=== PATIENT | female | born 1950 | race Two or more races ===

== ENCOUNTER 2021-11-24 07:15 | Emergency (ER) | payer MEDICAID ==
[~2021-11-24] VITALS: Ht 157.5 cm; Wt 69.4 kg
--- NOTE | 2021-11-24 07:30 | NUR ---
RECEIVED PT 71 yrs female walking in from home c/o abdominale pain started yesterday goting worse today voding cloudy urine color 25mg
--- NOTE | 2021-11-24 07:54 | NUR ---
EKG DONE UA SENT TO LAB
[2021-11-24] MEDS ORDERED: IV NS 0.9% 1,000 ML BAG IV ONE ×2 (08:00→08:30)
[2021-11-24] MEDS ORDERED: MORPHINE SULFATE INJ 2 MG/ML DISP.SYRIN IV ONE (08:00)
[2021-11-24] MEDS ORDERED: ONDANSETRON HCL/PF 4 MG/2 ML VIAL IVP ONE (08:00)
[2021-11-24] MEDS ORDERED: ACETAMINOPHEN ES 500 MG TABLET PO ONE (08:00)
[2021-11-24] MEDS ORDERED: ACETAMINOPHEN ES 500 MG TABLET ONE (08:16)
[2021-11-24] MEDS ORDERED: MORPHINE SULFATE INJ 4 MG/ML DISP.SYRIN ONE (08:16)
[2021-11-24] MEDS ORDERED: ONDANSETRON HCL/PF 4 MG/2 ML VIAL ONE (08:16)
--- NOTE | 2021-11-24 08:20 | NUR ---
BLOOD DROW AND SENT TO LAB
[2021-11-24 08:43] LABS: ALBUMIN 3.2 g/dL (3.4-5.0); BILIRUBIN,DIRECT 0.4 mg/dL (0.0-0.2); BILIRUBIN,TOTAL 1.2 mg/dL (0.2-1.0); CALCIUM, SERUM 8.6 mg/dL (8.5-10.1); CREATININE 1.3 mg/dL (0.6-1.3); POTASSIUM 3.5 mmol/L (3.5-5.1); TOTAL PROTEIN, SERUM 7.4 g/dL (6.4-8.2)
--- NOTE | 2021-11-24 08:45 | NUR ---
TO CT SCAN OF ABDOMIN VIA MICHELLE
[2021-11-24 08:51] LABS: BILIRUBIN,URINE NEGATIVE (NEGATIVE); COLOR,URINE YELLOW (YELLOW); LEUKOCYTE ESTERASE ,URINE LARGE (NEGATIVE); NITRITE, URINE POSITIVE (NEGATIVE); PROTEIN,URINE 100 mg/dl (NEGATIVE); UGLUCOSE NEGATIVE (NEGATIVE); UROBILINOGEN,URINE 0.2 EU/dL (0.2)
[2021-11-24 09:04] LABS: BASOPHILS % (AUTO) 0.1 % (0.0-2.0); HEMATOCRIT 39 % (33-45); HEMOGLOBIN 13.2 g/dL (11.5-14.8); LYMPHOCYTES # (AUTO) 0.8 K/uL (0.8-4.8); LYMPHOCYTES % (AUTO) 5.6 % (20.0-44.0); MEAN CORPUSCULAR HGB CONC 34 g/dl (31.0-36.0); MEAN CORPUSCULAR VOLUME 90 fL (82-100); MONOCYTES # (AUTO) 1.3 K/uL (0.1-1.30); MONOCYTES % (AUTO) 9.6 % (2.0-12.0); NEUTROPHILS # (AUTO) 11.4 K/uL (1.8-8.9); NEUTROPHILS % (AUTO) 84.7 % (43.0-81.0); PLATELET COUNT (AUTO) 170 K/uL (150-450); RED BLOOD CELL COUNT(AUTO) 4.31 MIL/uL (4.0-5.2); WHITE BLOOD COUNT (AUTO) 13.4 K/uL (4.3-11.0)
[2021-11-24] MEDS ORDERED: CEPH500C2 PO (09:27)
[2021-11-24] MEDS ORDERED: ONDA4TAB5 PO (09:27)
[2021-11-24] MEDS ORDERED: IBUP-1955 PO (09:27)
[2021-11-24] MEDS ORDERED: CEFTRIAXONE 1 G in IV D5W 50 ML IV ONE (09:30)
--- NOTE | 2021-11-24 10:00 | NUR ---
coVED SWAB AND INFLZ SWAB SENT TO LAB AND COVED PCR SWAB SENT TO LAB
[2021-11-24] MEDS ORDERED: CEFTRIAXONE 1GM BAG (ER ONLY) 50 ML IV ONE (10:03)
[2021-11-24 10:40] LABS: WBC,URINE TOO NUMEROUS TO COUN /HPF (0-3)
[2021-11-24 10:41] LABS: BACTERIA,URINE Many /HPF (None Seen); SQUAMOUS EPITHELIAL CELL,UR Moderate /HPF (None Seen)
--- NOTE | 2021-11-24 10:41 | NUR ---
IV removed. Catheter intact and site benign. Pressure and 4x4 applied to site. No bleeding noted.
[2021-11-24 10:42] LABS: RBC,URINE 21-50 /HPF (0-2)
--- NOTE | 2021-11-24 10:57 | NUR ---
PT FEELING BEATER AND ABDOMIALE PAIN resolve d/c instraction given to pt fully and verblized understood d/c home with rx and lab result tolorated po intack no n/v
[2021-11-24 11:12] VITALS: BP 105/72
== END 2021-11-24 11:13 | disposition home or self-care (01) ==
LOC: ER 07:21
DX: N12 Tubulo-interstitial nephritis, not specified as acute or chronic (principal); R51.9 Headache, unspecified; R00.0 Tachycardia, unspecified; Z20.822 Contact with and (suspected) exposure to COVID-19
CPT/HCPCS: 36415; 74176; 80048; 80076; 81001; 82962; 83605; 83690; 85025; 87040 ×2; 87077 ×3; 87086; 87186 ×2; 87426; 87804; 93005; 96361; 96365; 96375; 99285; C9803; J0696; J2270; J2405; J7030 ×2; J7060

== ENCOUNTER 2021-11-27 21:22 | Emergency (ER) | payer MEDICAID ==
[~2021-11-27] VITALS: Ht 154.9 cm; Wt 70.8 kg
[~2021-11-27 21:22] MED LIST: CEPH500C2 PO; IBUP-1955 PO; ONDA4TAB5 PO
--- NOTE | 2021-11-27 21:50 | NUR ---
PATIENT BIBFAMILY C/O FEVER AND WEAKNESS, ON ABX STILL FEELS LIKE ITS NOT WORKING PER PT. PATIENT A/O X 4, RR EVEN AND UNLABORED, NO SOB NOTED. PATIENT TAKEN TO ER BED 07. PATIENT PLACED ON CARIDAC AND POX MONITORS. WILL CONTINUE TO MONITOR.
--- NOTE | 2021-11-27 21:54 | NUR ---
DR. LAW MUNOZ AT PT'S BEDSIDE
--- NOTE | 2021-11-27 22:03 | NUR ---
URINE COLLECTED, SENT TO LAB.
[2021-11-27] MEDS ORDERED: ONDANSETRON HCL/PF 4 MG/2 ML VIAL ONE (22:11)
[2021-11-27] MEDS ORDERED: KETOROLAC TROMETHAMINE 15 MG/ML VIAL ONE (22:11)
[2021-11-27] MEDS ORDERED: IV NS 0.9% 1,000 ML BAG IV ONE (22:30)
[2021-11-27] MEDS ORDERED: KETOROLAC TROMETHAMINE INJ 30 MG/ML VIAL IV ONE (22:30)
[2021-11-27] MEDS ORDERED: ONDANSETRON HCL/PF 4 MG/2 ML VIAL IVP ONE (22:30)
--- NOTE | 2021-11-27 22:35 | NUR ---
Vesta WHALEY #20G S/L. BLOOD AND URINE COLLECTED AND SENT TO LAB
[2021-11-27 22:39] LABS: BASOPHILS % (AUTO) 0.2 % (0.0-2.0); EOSINOPHILS % (AUTO) 0.8 % (0.0-6.0); HEMATOCRIT 32 % (33-45); HEMOGLOBIN 10.9 g/dL (11.5-14.8); LYMPHOCYTES # (AUTO) 1.5 K/uL (0.8-4.8); LYMPHOCYTES % (AUTO) 14.9 % (20.0-44.0); MEAN CORPUSCULAR HGB CONC 34 g/dl (31.0-36.0); MEAN CORPUSCULAR VOLUME 91 fL (82-100); MONOCYTES # (AUTO) 1.3 K/uL (0.1-1.30); MONOCYTES % (AUTO) 12.8 % (2.0-12.0); NEUTROPHILS % (AUTO) 71.3 % (43.0-81.0); PLATELET COUNT (AUTO) 112 K/uL (150-450); RED BLOOD CELL COUNT(AUTO) 3.47 MIL/uL (4.0-5.2); WHITE BLOOD COUNT (AUTO) 9.8 K/uL (4.3-11.0)
[2021-11-27] MEDS ORDERED: IV NS 0.9% 250 ML IV ONE (22:53)
[2021-11-27] MEDS ORDERED: IOHEXOL-300 100 ML VIAL IV ONE (22:53)
[2021-11-27] MEDS ORDERED: CT SWABBABLE VALVE TRANS SET 1 EA INFUS.SET MC ONE (22:53)
[2021-11-27 23:23] LABS: BILIRUBIN,URINE NEGATIVE (NEGATIVE); COLOR,URINE YELLOW (YELLOW); LEUKOCYTE ESTERASE ,URINE NEGATIVE (NEGATIVE); NITRITE, URINE NEGATIVE (NEGATIVE); PROTEIN,URINE NEGATIVE (NEGATIVE); UGLUCOSE NEGATIVE (NEGATIVE); UROBILINOGEN,URINE 0.2 EU/dL (0.2)
[2021-11-27 23:26] LABS: ALBUMIN 2.4 g/dL (3.4-5.0); BILIRUBIN,DIRECT 0.1 mg/dL (0.0-0.2); BILIRUBIN,TOTAL 0.3 mg/dL (0.2-1.0); CALCIUM, SERUM 7.9 mg/dL (8.5-10.1); CREATININE 1.1 mg/dL (0.6-1.3); POTASSIUM 3.3 mmol/L (3.5-5.1); TOTAL PROTEIN, SERUM 6.4 g/dL (6.4-8.2)
[2021-11-27 23:43] LABS: BACTERIA,URINE Rare /HPF (None Seen); SQUAMOUS EPITHELIAL CELL,UR Moderate /HPF (None Seen)
--- NOTE | 2021-11-27 23:44 | NUR ---
PT TAKEN TO CT VIA BETSY
[2021-11-28] MEDS ORDERED: NITR100C6 PO (00:18)
[2021-11-28] MEDS ORDERED: NITROFURANTOIN/MONOHYDRATE MACROCRYSTALS 100 MG CAPSULE ONE (00:22)
[2021-11-28] MEDS ORDERED: NITROFURANTOIN/MONOHYDRATE MACROCRYSTALS 100 MG CAPSULE PO ONE (00:30)
--- NOTE | 2021-11-28 01:15 | NUR ---
IV removed. Catheter intact and site benign. Pressure and 4x4 applied to site. No bleeding noted.Patient discharged to home in stable condition. Written and verbal after care instructions given. Patient verbalizes understanding of instruction.
[2021-11-28 01:35] VITALS: BP 124/64
== END 2021-11-28 01:35 | disposition home or self-care (01) ==
LOC: ER 21:28
DX: N12 Tubulo-interstitial nephritis, not specified as acute or chronic (principal); Z79.899 Other long term (current) drug therapy
CPT/HCPCS: 36415; 74177; 80048; 80076; 81001; 83605; 83690; 85025; 87086; 96361; 96374; 96375; 99285; J1885; J2405; J7030; J7050; Q9967